=== PATIENT | female | born 1995 | race American Indian/Alaskan Native ===

== ENCOUNTER 2021-05-11 11:54 | Outpatient (CLI) | payer MEDICAID ==
[2021-05-11 12:27] VITALS: BP 124/80
[2021-05-11] MEDS ORDERED: LACTATED RINGERS 1,000 ML IV ONE (12:30)
--- NOTE | 2021-05-11 13:38 | Ultrasound Report ---
ULTRASOUND OBSTETRIC LIMITED ULTRASOUND BIOPHYSICAL PROFILE INDICATION / CLINICAL INFORMATION: nrnst in office. Clinical Gestational Age (GA) in weeks, days: Unknown TECHNIQUE: Transabdominal. COMPARISON: None available. FINDINGS: BREATHING MOVEMENT = 2 GROSS BODY MOVEMENT = 2 TONE = 2 QUALITATIVE AMNIOTIC FLUID VOLUME = 2 TOTAL BIOPHYSICAL SCORE = 8/8 HEART RATE (beats per minute): 136 PRESENTATION: Cephalic. ADDITIONAL FINDINGS: None. IMPRESSION: 1. Biophysical Score = 8/8 Signer Name: Gino Ring DO Signed: 05/11/2021 1:33 PM Workstation Name: [email or web address]
--- NOTE | 2021-05-11 13:42 | Ultrasound Report ---
ULTRASOUND OBSTETRIC LIMITED INDICATION / CLINICAL INFORMATION: [place]. TECHNIQUE: Transabdominal. COMPARISON: None available. FINDINGS: HEART RATE (beats per minute): 129 AMNIOTIC FLUID INDEX (cm) = 20.8 (normal = 7-24 cm) PRESENTATION: Cephalic. ADDITIONAL FINDINGS: None. IMPRESSION: 1. Single live intrauterine in cephalic presentation. 2. Normal amniotic fluid index. Signer Name: Federico Mccormack MD Signed: 05/11/2021 1:37 PM Workstation Name: [id number]
== END 2021-05-11 14:40 | disposition home or self-care (01) ==
LOC: TRG 11:54 → APU 11:55 → TRG 14:40
PROVIDERS: ATTEND Obstetrics & Gynecology
DX: Z34.93 Encounter for supervision of normal pregnancy, unspecified, third trimester (principal); Z3A.37 37 weeks gestation of pregnancy
CPT/HCPCS: 59025; 76816; 76819